=== PATIENT | female | born 1965 | race Caucasian/White ===

== ENCOUNTER 2017-01-30 11:02 | Day surgery (SDC) | payer OTHER ==
[~2017-01-30 11:02] MED LIST: Lactated Ringers 1,000 ML IV SCH
--- NOTE | 2017-01-30 11:39 | PCM.PREANE ---
Preanesthetic Assessment - Anesthesia/Transfusion/Family Hx Anesthesia History: Prior Anesthesia Without Reaction Type of Anesthesia Reaction: Other (see below) (some nauzes) Family History of Anesthesia Reaction: No Transfusion History: No Prior Transfusion(s) Intubation History: Unknown - Review of Systems General: No Symptoms Pulmonary: No Symptoms Cardiovascular: No Symptoms Gastrointestinal: No Symptoms, Other (screening colonoscopy) Neurological: No Symptoms Other: Reports: None - Physical Assessment O2 Sat by Pulse Oximetry: 100 Respiratory Rate: 16 Vital Signs: Last Vital Signs Temp 36.1 C 01/30/17 11:25 Pulse 86 01/30/17 11:25 Resp 16 01/30/17 11:25 BP 123/64 01/30/17 11:25 Pulse Ox 100 01/30/17 11:25 Height: 1.6 m Weight: 52.617 kg ASA Class: 2 Mental Status: Alert & Oriented x3 Airway Class: Mallampati = 2 Dentition: Reports: Normal Dentition Thyro-Mental Finger Breadths: 3 Mouth Opening Finger Breadths: 3 ROM/Head Extension: Full Lungs: Clear to Auscultation, Normal Respiratory Effort Cardiovascular: Regular Rate, Regular Rhythm - Allergies Allergies/Adverse Reactions: Allergies Allergy/AdvReac Type Severity Reaction Status Date / Time No Known Allergies Allergy Verified 12/16/16 11:50 - Blood Blood Available: No - Anesthesia Plan Pre-Op Medication Ordered: None - Acknowledgements Anesthesia Type Planned: MAC Pt an Appropriate Candidate for the Planned Anesthesia: Yes Alternatives and Risks of Anesthesia Discussed w Pt/Guardian: Yes Pt/Guardian Understands and Agrees with Anesthesia Plan: Yes PreAnesthesia Questionnaire Genitourinary History: Reports: None 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: Reports: Musculoskeletal History: Reports: None Neurological History: Reports: Migraines Endocrine/Metabolic History: Reports: Hypothyroidism - Past Surgical History Head Surgeries/Procedures: Reports: None HEENT Surgical History: Reports: Other (See Below) Other HEENT Surgeries/Procedures: hx eye surgery Female Surgical History: Reports: Other (See Below) Other Female Surgeries/Procedures: breast augmentation Musculoskeletal Surgical History: Reports: Other (See Below) Other Musculoskeletal Surgeries/Procedures:: left bunionectomy - SUBSTANCE USE Smoking Status *Q: Never Smoker Recreational Drug Use History: No - HOME MEDS Home Medications: Home Meds Ergocalciferol (Vitamin D2) [Vitamin D2] 1.25 mg PO DAILY 12/16/16 [History] Levothyroxine Sodium [Synthroid] 25 mcg PO DAILY 12/16/16 [History] - CURRENT (IN HOUSE) MEDS Current Meds: Current Medications Lactated Ringer's (Ringers, Lactated) 1,000 mls @ 125 mls/hr IV [facility]RECTED [facility] Last Admin: 01/30/17 11:27 Dose: 125 mls/hr Discontinued Medications Lactated Ringer's (Ringers, Lactated) 1,000 mls @ 125 mls/hr IV ASDIRECTED [facility]
[2017-01-30] MEDS ORDERED: Propofol 200 MG/20 ML SDV ONE ×2 (12:25→13:06)
[2017-01-30] MEDS ORDERED: Midazolam 1 MG/ML 2 ML SDV ONE (12:25)
[2017-01-30] MEDS ORDERED: fentaNYL 100 MCG/2 ML SDV ONE (12:25)
--- NOTE | 2017-01-30 13:20 | PCM.OPNOTE ---
- General Post-Op/Procedure Note Date of Surgery/Procedure: 01/30/17 Operative Procedure(s): colonoscopy Findings: see dict [id number] Pre Op Diagnosis: scrn colonoscopy Post-Op Diagnosis: Same Anesthesia Technique: Moderate Sedation Primary Surgeon: Kirby Moreau Complications: None Condition: Good
--- NOTE | 2017-01-30 14:02 | OR ---
SURGEON: Kirby Moreau MD DATE OF PROCEDURE: 01/30/2017 PREOPERATIVE DIAGNOSIS: Screening colonoscopy. POSTOPERATIVE DIAGNOSIS: Screening colonoscopy. PROCEDURE PERFORMED: Colonoscopy. FINDINGS: 1. The patient is easily sedated with VIDEO PRODUCTION ASSISTANT and Diprivan. The patient is soundly snoring. 2. Bowel prep is average to good. Very little liquid stool. 3. The patient's colon is rather straight forward. Cecum indicated by ileocecal fold, one-to-one indentation, light immittance, and appendiceal orifice. Mucosa examined upon scope pulling out. The patient does not have diverticulosis, polyp, mass, growth, inflammation, stricture, ulceration, or AV malformation. None of those. The patient has very mild internal hemorrhoids, no external hemorrhoids. The patient would benefit from a repeat colonoscopy in 10 years from today or if clinically indicated otherwise. PROCEDURE IN DETAIL: The patient was taken to the endoscopy room. A time out was called, patient identified, and procedure identified. Diprivan was then administrated. Patient went from awake to sleep, hearing doctor talking or door closing is normal. Perineum inspection and digital examination were then performed. A well- lubricated colonoscope was gently inserted through the rectum, advanced past the rectosigmoid junction, the descending colon, splenic flexure, transverse colon, hepatic flexure, ascending colon, arrived to the cecum. Cecum was identified as dictated in the finding. Then the scope was carefully withdrawn while attention was paid to the mucosal surface for any abnormality. Air will be sucked out during the scope withdrawal. At the rectum, retroflexed to examine any rectal diseases, fistula or hemorrhoids. Patient tolerated procedure well. There were no intraoperative complications, and Dr. Moreau was present throughout the whole procedure. KVNG / RAJNI /[id number]
[2017-01-30 15:30] VITALS: BP 110/56
== END 2017-01-30 14:20 | disposition home or self-care (01) ==
LOC: MW.SDS 11:02
PROVIDERS: ATTEND Surgery
DX: Z12.11 Encounter for screening for malignant neoplasm of colon (principal); K64.8 Other hemorrhoids; G43.909 Migraine, unspecified, not intractable, without status migrainosus; E03.9 Hypothyroidism, unspecified; Z87.891 Personal history of nicotine dependence; Z79.899 Other long term (current) drug therapy; Z98.890 Other specified postprocedural states
CPT/HCPCS: 45378; 81025; J2250; J3010; J7120; 00810; J2704

== ENCOUNTER 2018-05-21 09:40 | Day surgery (SDC) | payer OTHER ==
--- NOTE | 2018-05-21 11:02 | PCM.PREANE ---
Preanesthetic Assessment - Anesthesia/Transfusion/Family Hx Anesthesia History: Prior Anesthesia Without Reaction Transfusion History: No Prior Transfusion(s) Intubation History: Unknown - Review of Systems General: No Symptoms Pulmonary: No Symptoms Cardiovascular: No Symptoms Gastrointestinal: No Symptoms Neurological: No Symptoms Other: Reports: None - Physical Assessment O2 Sat by Pulse Oximetry: 95 Respiratory Rate: 16 Vital Signs: Last Vital Signs Temp 36.2 C 05/21/18 10:00 Pulse 82 05/21/18 10:00 Resp 16 05/21/18 10:00 BP 140/71 05/21/18 10:00 Pulse Ox 95 05/21/18 10:00 Height: 1.6 m Weight: 50.349 kg ASA Class: 2 Mental Status: Alert & Oriented x3 Airway Class: Mallampati = 2 Dentition: Reports: Normal Dentition Thyro-Mental Finger Breadths: 3 Mouth Opening Finger Breadths: 3 ROM/Head Extension: Full Lungs: Clear to Auscultation, Normal Respiratory Effort Cardiovascular: Regular Rate, Regular Rhythm - Lab Values: Laboratory Last Values Urine HCG, Qual NEGATIVE (NEGATIVE) 05/21/18 10:00 - Allergies Allergies/Adverse Reactions: Allergies Allergy/AdvReac Type Severity Reaction Status Date / Time No Known Allergies Allergy Verified 05/18/18 12:28 - Acknowledgements Anesthesia Type Planned: MAC (The patient understands and accepts the anesthetic risks and benefits of MAC. aLL questions answered. she agrees to proceed, and has consented. 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: Musculoskeletal History: Reports: None Neurological History: Reports: Migraines Psychiatric History: Reports: None Endocrine/Metabolic History: Reports: Hypothyroidism Hematologic History: Reports: None - Past Surgical History Head Surgeries/Procedures: Reports: None HEENT Surgical History: Reports: Other (See Below) Other HEENT Surgeries/Procedures: hx eye surgery as a child GI Surgical History: Reports: Colonoscopy Female Surgical History: Reports: Breast Implant, Other (See Below) Other Female Surgeries/Procedures: breast augmentation Musculoskeletal Surgical History: Reports: Other (See Below) Other Musculoskeletal Surgeries/Procedures:: left bunionectomy - SUBSTANCE USE Smoking Status *Q: Never Smoker Tobacco Use Within Last Twelve Months: Other (See Below) (no etoh for at least 2 years) Recreational Drug Use History: No - HOME MEDS Home Medications: Home Meds Levothyroxine Sodium [Synthroid] 25 mcg PO DAILY 12/16/16 [History] Cholecalciferol (Vitamin D3) [Vitamin D3] 50,000 units PO ASDIRECTED 05/18/18 [ History] - CURRENT (IN HOUSE) MEDS Current Meds: Current Medications Lactated Ringer's (Ringers, Lactated) 1,000 mls @ 125 mls/hr IV ASDIRECTED [facility] Last Admin: 05/21/18 10:04 Dose: 125 mls/hr
[2018-05-21] MEDS ORDERED: fentaNYL 100 MCG/2 ML SDV ONE (11:13)
[2018-05-21] MEDS ORDERED: Propofol 200 MG/20 ML SDV ONE (11:13)
[2018-05-21] MEDS ORDERED: Midazolam 1 MG/ML 2 ML SDV ONE (11:14)
[2018-05-21] MEDS ORDERED: Lidocaine 2% 5 ML SDV ONE (11:28)
[2018-05-21] MEDS ORDERED: Ondansetron 4 MG/2 ML SDV ONE (12:03)
--- NOTE | 2018-05-21 12:21 | PCM.OPNOTE ---
- General Post-Op/Procedure Note Date of Surgery/Procedure: 05/21/18 Operative Procedure(s): egd w bx and colonoscopy w bx Findings: see [id number] Pre Op Diagnosis: BRBPR Post-Op Diagnosis: Same Anesthesia Technique: Moderate Sedation Primary Surgeon: Kirby Moreau Pathology: egd bx and colon random bx Complications: None Condition: Good
--- NOTE | 2018-05-21 12:22 | PCM.POSTAN ---
POST ANESTHESIA ASSESSMENT - MENTAL STATUS Mental Status: Alert, Oriented - RESPIRATORY Respiratory Status: Respiratory Rate WNL, Airway Patent, O2 Saturation Stable - CARDIOVASCULAR CV Status: Pulse Rate WNL, Blood Pressure Stable - GASTROINTESTINAL GI Status: No Symptoms - POST OP HYDRATION Hydration Status: Adequate & Stable - OBSERVATIONS Free Text/Narrative:: The patient tolerated the procedure well. There were no apparent anesthetic complications at this time. Discharge home per criteria.
--- NOTE | 2018-05-21 12:45 | PCM48HPAN ---
Post Anesthesia Note - EVALUATION WITHIN 48HRS OF ANESTHETIC Vital Signs in Normal Range: Yes Patient Participated in Evaluation: Yes Respiratory Function Stable: Yes Airway Patent: Yes Cardiovascular Function Stable: Yes Hydration Status Stable: Yes Pain Control Satisfactory: Yes Nausea and Vomiting Control Satisfactory: Yes Resp Rate: 13 - COMMENTS/OBSERVATIONS Free Text/Narrative:: Patient has no complaints at this time. Discharge home per criteria.
[2018-05-21 12:48] VITALS: BP 104/56
--- NOTE | 2018-05-21 13:28 | OR ---
SURGEON: Kirby Moreau MD DATE OF PROCEDURE: 05/21/2018 PREOPERATIVE DIAGNOSIS: Bright red blood per rectum. POSTOPERATIVE DIAGNOSES: Esophagogastroduodenoscopy diagnosis: Gastritis. Colonoscopy diagnosis: Hemorrhoids. PROCEDURES PERFORMED: EGD with biopsy and colonoscopy with biopsy. PROCEDURE IN DETAIL: EGD: The patient was taken to the endoscopy room, and with the ACUTE CARE NURSING ASSISTANT, Diprivan was administered. A well-lubricated EGD scope was gently inserted through the oropharynx, down the esophagus, passing through the gastroesophageal junction, into the stomach. The mucosa was examined upon the passage. Any etiology will be noted. Once in the stomach, we continued to advance to the distal antrum, passed through the pylorus into the second portion of the duodenum. Again, the mucosa was examined for any abnormality and etiology. The scope was then retrieved back to the stomach and then retroflexed to look at the fundus of the stomach. If a biopsy was indicated, we will biopsy the antrum, body, and gastroesophageal junction. The air will be sucked out while the scope is retrieved to reduce the patient's discomfort. The patient tolerated the procedure well. There were no intraoperative complications. Dr. Moreau was present through the whole procedure. Prior to surgery, a time-out had been called, the patient identified, procedure identified and antibiotic administered. Colonoscopy procedure: The patient was taken to the endoscopy room. A time out was called, patient identified, and procedure identified. Diprivan was then administrated. Patient went from awake to sleep, hearing doctor talking or door closing is normal. Perineum inspection and digital examination were then performed. A well- lubricated colonoscope was gently inserted through the rectum, advanced past the rectosigmoid junction, the descending colon, splenic flexure, transverse colon, hepatic flexure, ascending colon, arrived to the cecum. Cecum was identified as dictated in the finding. Then the scope was carefully withdrawn while attention was paid to the mucosal surface for any abnormality. Air will be sucked out during the scope withdrawal. At the rectum, retroflexed to examine any rectal diseases, fistula or hemorrhoids. During mucosal examination, abnormality or polyp was noted; picture taken and biopsy performed. Patient tolerated procedure well. There were no intraoperative complications, and Dr. Moreau was present throughtout the whole procedure. FINDINGS: EGD findings: 1. The patient is easily sedated with ACUTE CARE NURSING ASSISTANT and Diprivan. The patient is soundly snoring. 2. Proximal esophagus and pharynx are normal in appearance. No inflammation, stricture, ulceration, blood observed, and distal esophagus at GE junction at 40 shows very little salmon-colored change suggests mild GERD, and stomach rugae is normal in appearance, and antrum is totally normal, and duodenum was grossly normal in appearance, and the scope retrieved back to the stomach, retroflexed look at the fundus of stomach, there is no hiatal hernia. Biopsy done at antrum, body, and GE junction at 40 and sucked out the gas while scope pulling out. In the stomach area, there are couple of areas with some petechiae appearance. There is not hemorrhaging of blood and throughout the whole study, there is no blood ulcer observed. There are some food particles, but there is no bile. Colonoscopy findings: 1. The patient is easily sedated with ACUTE CARE NURSING ASSISTANT and Diprivan. The patient is soundly snoring. 2. Bowel prep is average to good, very little liquid stool, no semi-formed stool. 3. Colon is rather straight forward. Cecum indicated by ileocecal fold, one- to-one indentation, appendiceal orifice, and light emittance, and mucosa examined upon scope pulling out with some irrigation. The patient does not have diverticulosis, polyp, mass, growth, inflammation, stricture, ulceration, AV malformation, blood, none of those. The patient has some external hemorrhoids and some internal hemorrhoids, pretty mild, and looking carefully, may be some fissure suggest that may be responsible for the bleeding. Random biopsy done for pain, and GI bleeding depends on pathology and the biopsy results. The patient would probably benefit from repeat colonoscopy in 10 years from today or if clinically indicated otherwise. KVNG / RAJNI /[id number]
== END 2018-05-21 12:45 | disposition home or self-care (01) ==
LOC: MW.SDS 09:40
PROVIDERS: ATTEND Surgery
DX: K29.51 Unspecified chronic gastritis with bleeding (principal); K64.4 Residual hemorrhoidal skin tags; K64.8 Other hemorrhoids; Z87.891 Personal history of nicotine dependence; Z79.890 Hormone replacement therapy
CPT/HCPCS: 43239; 45380; 81025; J2001; J2250; J2405; J2704; J3010; J7120; 88305; 88312

== ENCOUNTER 2022-02-26 03:31 | Emergency (ER) | payer BC, OTHER ==
[2022-02-26] MEDS ORDERED: Lidocaine/Epineph/Tetracaine 3 ML Syringe TOP ONE ×2 (03:54→04:02)
[2022-02-26] MEDS ORDERED: Amoxicillin/Clavulanate K 875-125 MG Tab PO ONE (04:00)
[2022-02-26] MEDS ORDERED: Acetaminophen 325 MG Tab PO ONE (04:02)
[2022-02-26] MEDS ORDERED: Ibuprofen 400 MG Tab PO ONE (04:02)
[2022-02-26] MEDS ORDERED: Bacitracin Oint 1 GM U/D Packet TOP ONE (05:09)
[2022-02-26] MEDS ORDERED: Diphtheria,Pertussis(Acell),Tetanus Vaccine 0.5 ML Syringe IM ONE (05:11)
[2022-02-26 06:18] VITALS: BP 100/56; PULSE 74
== END 2022-02-26 06:16 | disposition home or self-care (01) ==
LOC: MW.ED 03:31
DX: S01.21XA Laceration without foreign body of nose, initial encounter (principal); S01.85XA Open bite of other part of head, initial encounter; Z79.899 Other long term (current) drug therapy; Z23 Encounter for immunization; W54.0XXA Bitten by dog, initial encounter
CPT/HCPCS: 12013; 90471; 90715; 99283; A9270